=== PATIENT | female | born 1975 | race Caucasian/White ===

== ENCOUNTER → 2020-11-15 | Outpatient (CLI) | payer OTHER ==
[~2020-11-15] MED LIST: AMOXICILLIN500 M1 PO; AUGMENTIN 875875 MG PO; BENADRYL25 MG PO; CYPROHEPTADINE 44 MG; DOXEPIN 10 MG C10 MG; DOXYCYCLINE 10100 M1 PO; ELIMITE 5%; HYDROXYZINE HCL25 M1; HYDROXYZINE HCL25 M1 PO; MEDROLDOSEPACK PO; NOHOMEMEDICATIONS; NORCO 5-325 TA1 EACH PO; ONE DAILY WOME0.4 MG PO; PREDNISONE 10 M10 M1 PO; PREDNISONE 20 M20 MG PO; STERAPRED DS10 MG PO; VICOPROFEN 2001 EACH PO; ZANTAC 7575 MG PO
== END ==
LOC: M.RAD 08:58
PROVIDERS: ATTEND Nurse Practitioner Family
DX: Z12.31 Encounter for screening mammogram for malignant neoplasm of breast (principal)

== ENCOUNTER 2021-01-29 16:49 | Emergency (ER) | payer OTHER ==
[~2021-01-29] VITALS: Ht 160 cm; Wt 69.0 kg
[2021-01-29 17:05] VITALS: BP 155/92
[2021-01-29] MEDS ORDERED: HYDROCODON-ACE1 EA11 PO (17:35)
[2021-01-29] MEDS ORDERED: AUGMENTIN 875-1 EACH PO (17:35)
== END 2021-01-29 18:40 | disposition home or self-care (01) ==
LOC: M.ERS 16:49
DX: S61.451A Open bite of right hand, initial encounter (principal); S60.221A Contusion of right hand, initial encounter; S20.01XA Contusion of right breast, initial encounter; Z88.8 Allergy status to other drugs, medicaments and biological substances; Z90.710 Acquired absence of both cervix and uterus; Z98.890 Other specified postprocedural states; Z90.89 Acquired absence of other organs; W50.3XXA Accidental bite by another person, initial encounter; Y93.89 Activity, other specified; Y92.89 Other specified places as the place of occurrence of the external cause; Y99.8 Other external cause status

== ENCOUNTER 2021-02-21 12:43 | Emergency (ER) | payer OTHER ==
[~2021-02-21] VITALS: Ht 162.6 cm; Wt 113.4 kg
[~2021-02-21 12:43] MED LIST changes: +AUGMENTIN 875-1 EACH PO; +HYDROCODON-ACE1 EA11 PO
[2021-02-21] MEDS ORDERED: VENTOLIN HFA 1818 GM INH (14:00)
[2021-02-21 14:07] VITALS: BP 140/100
== END 2021-02-21 14:08 | disposition home or self-care (01) ==
LOC: M.ERS 12:43
DX: U07.1 COVID-19 (principal); Z88.8 Allergy status to other drugs, medicaments and biological substances; Z90.710 Acquired absence of both cervix and uterus; Z98.890 Other specified postprocedural states

== ENCOUNTER 2021-02-27 17:01 | Emergency (ER) | payer OTHER ==
[~2021-02-27] VITALS: Ht 162.6 cm; Wt 113.4 kg
[~2021-02-27 17:01] MED LIST changes: +VENTOLIN HFA 1818 GM INH
[2021-02-27 18:21] LABS: ABSOLUTE LYMPHOCYTES 0.7 thou/uL (0.8-5.3); ABSOLUTE MONOCYTES 0.2 thou/uL (0.0-1.2); BASOPHILS 0.9 %; HEMATOCRIT 41.5 % (37.0-47.0); HEMOGLOBIN 14.2 gm/dL (12.0-15.0); LYMPHOCYTES 17.7 %; MCH 29.9 pg (26.0-34.0); MCHC 34.3 g/dL (28.0-37.0); MCV 87.2 fL (80.0-100.0); MONOCYTES 4.4 %; MPV 8.8 fl. (7.2-11.1); NUCLEATED RBCS 0 /100WBC; PLATELET COUNT* 154 thou/uL (150-400); RBC 4.75 mil/uL (4.20-5.00); RDW-CV 13.7 % (10.5-14.5); WBC 3.9 thou/uL (4.0-11.0)
[2021-02-27 18:30] LABS: CALCIUM 6.3 mg/dL (8.5-10.1); CREATININE 0.7 mg/dL (0.6-1.3); POTASSIUM 3.2 mmol/L (3.5-5.1)
[2021-02-27 18:40] LABS: ALBUMIN 2.6 g/dL (3.4-5.0); TOTAL BILIRUBIN 0.4 mg/dL (<0.1-1.0)
[2021-02-27] MEDS ORDERED: FLEXERIL PO (22:43)
[2021-02-27] MEDS ORDERED: ZOFRAN ODT4 MG PO (22:43)
[2021-02-27] MEDS ORDERED: VENTOLIN HFA 1818 GM INH (22:43)
[2021-02-27 22:58] VITALS: BP 127/85
--- NOTE | 2021-02-28 09:37 | EKG ---
[place] [address] ELECTROCARDIOGRAM REPORT Name: INDIGO ZAMUDIO Room: [facility]#: [id number] Admission: 02/27/21 Attend Phys: Discharge: 02/27/21 Date of : 79 Date of Service: 02/27/211824 Report #: [id number] THIS REPORT FOR: //name// [facility] ED Test Date: 2021-02-27 Test Time: 18:25:21 Pat Name: INDIGO ZAMUDIO Department: Room: Gender: Senior Electrical Designer: SHERI : 1975 Requested By: Camille Odom Order Number: [id number] MD: Joby Palomino Measurements Intervals [place] Rate: 121 P: 24 NC: 146 QRS: 45 QRSD: 76 T: 0 QT: 291 QTc: 413 Interpretive Statements Sinus tachycardia Compared to ECG 09/24/2008 18:31:41 Sinus rhythm no longer present Electronically Signed On 02-28-2021 9:37:10 CDT by Joby Palomino [email or web address] <ELECTRONICALLY SIGNED> By: Joby Palomino MD, [facility] 02/28/21 0937 1825 1825 Joby Palomino MD, [facility] /EPI
== END 2021-02-27 22:59 | disposition home or self-care (01) ==
LOC: M.ERS 17:01
PROVIDERS: Nurse Practitioner Family
DX: U07.1 COVID-19 (principal); E86.0 Dehydration; Z88.8 Allergy status to other drugs, medicaments and biological substances; E66.9 Obesity, unspecified; Z90.710 Acquired absence of both cervix and uterus; Z98.890 Other specified postprocedural states